=== PATIENT | female | born 1945 | race Two or more races ===

== ENCOUNTER 2022-11-30 15:13 | Emergency (ER) | payer OTHER ==
[~2022-11-30] VITALS: Ht 165.1 cm; Wt 75.3 kg
[2022-11-30] MEDS ORDERED: LORA10TA6 PO (17:12)
[2022-11-30] MEDS ORDERED: ALBUAER3 IN (17:12)
[2022-11-30] MEDS ORDERED: GUAI600T23 PO (17:12)
[2022-11-30 17:18] VITALS: BP 130/62
== END 2022-11-30 17:19 | disposition home or self-care (01) ==
LOC: ER 15:13
DX: J06.9 Acute upper respiratory infection, unspecified (principal); R94.31 Abnormal electrocardiogram [ECG] [EKG]
CPT/HCPCS: 71045; 93005